=== PATIENT | female | born 1990 | race American Indian/Alaskan Native ===

== ENCOUNTER 2018-03-12 11:31 | Inpatient (IN) | payer OTHER ==
--- NOTE | 2018-03-12 14:54 | Emergency Department Report ---
Blank Doc - Documentation Documentation: Patient presents to emergency department with a chief complaint of chest pain that worse with inspiration along with the cough. The patient was diagnosed on 12/07/2017 with multifocal airspace infiltrates via CAT scan. Patient has CAT scan results with her and I did review them. Patient states she was too busy to be treated for the pneumonia and had to work and states since that time her symptoms have become worse. Imaging and labs will be obtained and the patient will be transferred to the main side of the emergency department.
--- NOTE | 2018-03-12 15:05 | Emergency Department Report ---
ED General Adult HPI - General Chief complaint: Chest Pain Stated complaint: CHEST PAIN/DIZZY SWEATS Time Seen by Provider: 03/12/18 14:40 Source: patient Mode of arrival: Ambulatory Limitations: No Limitations - History of Present Illness Initial comments: Patient presents to the emergency department with the complaint of chest pain with inspiration and shortness of breath on exertion. Patient states she was diagnosed with bilateral pneumonia on 12/07/2017 and did not seek treatment. Patient states she was too busy to follow up with the CT results that showed bilateral pneumonia. Patient has the CT report with her which I did review. -: Gradual Location: chest Radiation: non-radiation Severity scale (0 -10): 6 Quality: dull Consistency: constant Improves with: none Worsens with: none Associated Symptoms: denies other symptoms Treatments Prior to Arrival: none - Related Data Allergies Allergy/AdvReac Type Severity Reaction Status Date / Time No Known Allergies Allergy Verified 03/12/18 11:44 ED Review of Systems ROS: Stated complaint: CHEST PAIN/DIZZY SWEATS Other details as noted in HPI Constitutional: denies: chills, fever Eyes: denies: eye pain, eye discharge, vision change ENT: denies: ear pain, throat pain Respiratory: cough, shortness of breath, SOB with exertion. denies: wheezing Cardiovascular: chest pain. denies: palpitations Endocrine: no symptoms reported Gastrointestinal: denies: abdominal pain, nausea, diarrhea Genitourinary: denies: urgency, dysuria, discharge Musculoskeletal: denies: back pain, joint swelling, arthralgia Skin: denies: rash, lesions Neurological: denies: headache, weakness, paresthesias Psychiatric: denies: anxiety, depression Hematological/Lymphatic: denies: easy bleeding, easy bruising ED Past Medical Hx - Past Medical History Previous Medical History?: Yes Hx Asthma: Yes Additional medical history: pneumonia - Surgical History Past Surgical History?: No - Social History Smoking Status: Former Smoker Substance Use Type: Cocaine, Marijuana, Methamphetamines ED Physical Exam - General Limitations: No Limitations General appearance: alert, in no apparent distress - Head Head exam: Present: atraumatic, normocephalic - Eye Eye exam: Present: normal appearance - ENT ENT exam: Present: mucous membranes moist - Neck Neck exam: Present: normal inspection - Respiratory Respiratory exam: Present: normal lung sounds bilaterally, other (diminished breath sounds throughout). Absent: respiratory distress, wheezes, rales - Cardiovascular Cardiovascular Exam: Present: regular rate, normal rhythm. Absent: systolic murmur, diastolic murmur, rubs, gallop - GI/Abdominal GI/Abdominal exam: Present: soft, normal bowel sounds. Absent: distended, tenderness - Extremities Exam Extremities exam: Present: normal inspection - Back Exam Back exam: Present: normal inspection - Neurological Exam Neurological exam: Present: alert, oriented X3, CN II-XII intact. Absent: motor sensory deficit - Psychiatric Psychiatric exam: Present: normal affect, normal mood - Skin Skin exam: Present: warm, dry, intact, normal color. Absent: rash ED Course Vital Signs 03/12/18 11:44 Temperature 97.8 F Pulse Rate 103 H Respiratory 18 Rate Blood Pressure 137/98 O2 Sat by Pulse 98 Oximetry ED Medical Decision Making - Lab Data Result diagrams: 03/12/18 14:58 03/12/18 14:58 - Medical Decision Making Discussed results with the patient At [address] IV antibodies were initiated along with blood cultures and lactic acid Critical care attestation.: If time is entered above; I have spent that time in minutes in the direct care of this critically ill patient, excluding procedure time. ED Disposition Clinical Impression: Bilateral pneumonia Disposition: 09 OP ADMIT IP TO THIS HOSP Is pt being admited?: Yes Does the pt Need Aspirin: No Condition: Stable Referrals: PRIMARY CARE, [Primary Care Provider] - 3-5 Days Time of Disposition: 19:43
[2018-03-12] MEDS ORDERED: ZOFRAN IV ONE (15:06)
[2018-03-12] MEDS ORDERED: MORPHINE IV ONE (15:06)
[2018-03-12 15:08] LABS: Basophils % (Auto) 0.8 % (0.0-1.8); Eosinophils # (Auto) 0.2 K/mm3 (0.0-0.4); Eosinophils % (Auto) 2.6 % (0.0-4.3); Hematocrit 44.1 % (30.3-42.9); Hemoglobin 15.1 gm/dl (10.1-14.3); Lymphocytes # (Auto) 1.3 K/mm3 (1.2-5.4); Lymphocytes % (Auto) 21.1 % (13.4-35.0); Mean Corpuscular HGB Conc 34 % (30-34); Mean Corpuscular Hemoglobin 31 pg (28-32); Mean Corpuscular Volume 91 fl (79-97); Monocytes # (Auto) 0.6 K/mm3 (0.0-0.8); Monocytes % (Auto) 9.3 % (0.0-7.3); Platelet Count 445 K/mm3 (140-440); Red Blood Count 4.83 M/mm3 (3.65-5.03); Red Cell Distribution Width 13.3 % (13.2-15.2)
[2018-03-12 15:23] LABS: Partial Thromboplastin Time 29.9 Sec. (24.2-36.6)
[2018-03-12 15:26] LABS: Alanine Aminotransferase 11 units/L (7-56); Albumin 3.8 g/dL (3.9-5); BUN/Creatinine Ratio 18; Blood Urea Nitrogen 11 mg/dL (7-17); Calcium 9.4 mg/dL (8.4-10.2); Hemolysis Index 65
[2018-03-12] MEDS ORDERED: NACL 0.9% 1000 ML 1,000 ML ONE (15:35)
[2018-03-12 15:45] LABS: Bilirubin,Urine NEG (Negative); Blood,Urine NEG (Negative); Color,Urine Yellow (Yellow); HCG Qualitative,Urine Negative (Negative); Mucus,Urine 3+ /HPF; Protein,Urine <15 mg/dL mg/dL (Negative); Urobilinogen,Urine < 2.0 mg/dL (<2.0)
[2018-03-12] MEDS ORDERED: NACL 0.9% 1000 ML 1,000 ML IV ONE ×3 (15:47→19:41)
--- NOTE | 2018-03-12 16:47 | XRay Report ---
FINAL REPORT PROCEDURE: XR CHEST 1V AP TECHNIQUE: Chest radiograph anteroposterior view. CPT 77858 HISTORY: chest pain COMPARISON: No prior studies are available for comparison. FINDINGS: Heart size and pulmonary vasculature appear normal. There is focal dense consolidation left perihilar region extending laterally in small patchy alveolar densities in the right midlung field suggesting multifocal pneumonia. Lungs otherwise are clear. No effusions are seen. No acute bony abnormalities are identified IMPRESSION: Parenchymal density seen in the right and left hemithorax as described suspicious for multifocal pneumonia. Follow-up exam recommended to ensure resolution. No other abnormalities are identified..
--- NOTE | 2018-03-12 19:26 | Cat Scan Report ---
FINAL REPORT PROCEDURE: CT ANGIO CHEST TECHNIQUE: Computerized tomographic angiography of the chest was performed during the IV injection of iodinated nonionic contrast including image processing. The image data was postprocessed using 2-dimensional multiplanar reformatted (MPR) and 3-dimensional (MIP and/or volume rendered) techniques. HISTORY: chest pain COMPARISON: No prior studies are available for comparison. FINDINGS: Pulmonary outflow tract, right and left main pulmonary arteries and their proximal branches: Clear, no filling defects are seen to suggest pulmonary embolus. Pericardium: No evidence of pericardial effusion. Thoracic aorta: No evidence of aneurysmal dilatation or dissection. Coronary arteries: Are partially calcified indicating atherosclerotic disease. Mediastinum and hilar regions: Nonspecific subcentimeter lymph nodes are visualized. No pathologically enlarged lymph nodes or masses are identified. There is a nonspecific 6.8 millimeter low-density nodule in the right lobe of the thyroid gland. Lung Paige: There are multiple areas of parenchymal consolidation with air bronchograms. These extend into the left lower lobe, right lower lobe, medial aspect right middle lobe and right upper lobe. Greatest consolidation with air bronchograms visualized in the left upper lobe medially extending towards the left hilum. No effusions are identified. There are multiple small tree-in-bud type densities scattered in the lung paige bilaterally suggesting bronchiolitis. Upper abdomen: No acute or focal abnormality is seen. Other: No acute bony abnormalities are identified. IMPRESSION: No evidence of pulmonary embolus. Multiple areas of consolidation and air bronchograms visualized as well as scattered tree-in-bud type densities. The appearance suggest multifocal pneumonia and bronchiolitis. No effusions are seen. Small nonspecific low-density nodule right lobe of the thyroid gland. Consider follow-up nonemergent thyroid ultrasound.
[2018-03-12] MEDS ORDERED: ZOFRAN IV PRN (21:44)
[2018-03-12] MEDS ORDERED: ZOSYN/NS 3.375GM/50ML 3.375 GM/50 ML BAG IV SCH (22:00)
[2018-03-12] MEDS: ZOSYN/NS 4.5GM/100ML 4.5 GM/100 ML VIAL IV SCH (23:00)
[2018-03-12] MEDS: HEPARIN SUB-Q SCH (23:00)
[2018-03-12] MEDS ORDERED: HEPARIN ONE (23:04)
[2018-03-12] MEDS ORDERED: NACL 0.9% 1000 ML 2,000 ML ONE (23:04)
[2018-03-12] MEDS ORDERED: ZOSYN/NS 4.5GM/100ML 4.5 GM/100 ML VIAL IV ONE (23:04)
[2018-03-13] MEDS: ROBITUSSIN PO PRN ×3 (01:27→21:35)
[2018-03-13] MEDS: TYLENOL PO PRN ×4 (01:28→21:31)
--- NOTE | 2018-03-13 03:25 | History and Physical Report ---
CHIEF COMPLAINT: Chest pain. OTHER COMPLAINT: Includes diaphoresis and dizziness. HISTORY OF PRESENTING ILLNESS: The patient is a 27-year-old female who says she has been having pleuritic chest pain that all caused with inspiration and also the patient complained of shortness of breath on exertion. She was diagnosed with bilateral pneumonia in December of this year, but did not get any treatment. Said she was too busy to follow up with CT report that shows bilateral pneumonia. There is no history of fever, but there is history of cough. The patient has CT report, which was evaluated in the Emergency Room. PAST MEDICAL HISTORY: Pertinent for asthma and pneumonia. PAST SURGICAL HISTORY: Unremarkable. FAMILY HISTORY: Noncontributory. SOCIAL HISTORY: The patient is a former cigarette smoker and uses illicit drugs notably cocaine, marijuana, and methamphetamine, but does not drink alcohol. MEDICATIONS: The patient is not on any medication. ALLERGIES: THERE ARE NO KNOWN DRUG ALLERGIES. REVIEW OF SYSTEMS: CONSTITUTIONAL: There is no fever, but there is chills and there is diaphoresis. HEENT: There is no headache or sore throat. CARDIOVASCULAR: Pleuritic chest pain noted. No orthopnea. RESPIRATORY: Shortness of breath is present. Cough present. GASTROINTESTINAL SYSTEM: There is no nausea, no vomiting, no abdominal pain, diarrhea, or constipation. NEUROLOGIC: Dizziness present. No altered mental status. MUSCULOSKELETAL: There is no joint pain or swelling. DERMATOLOGICAL SYSTEM: There is no skin rash or itching. GENITOURINARY: There is no dysuria, hematuria, or flank pain. Rest of system review is normal. PHYSICAL EXAMINATION: GENERAL: At the time of exam, the patient was found to be alert, oriented x 3 and not in acute distress. VITAL SIGNS: Shows temperature of 97.8 degrees Fahrenheit, pulse of 103, respirations 18, blood pressure 137/98, O2 sat of 98% on room air. HEENT: Showed pupils to be equal, round, reactive to light and accommodation. Extraocular muscles are intact. NECK: Supple with no JVD or carotid bruit. CARDIOVASCULAR: Showed normal first and second heart sounds with no gallops or murmurs. RESPIRATORY SYSTEM: Show good air entry on both sides of the lungs with bilateral scattered crackles. GASTROINTESTINAL SYSTEM: Show abdomen to be full, soft, nontender with no organomegaly or rigidity. NEUROLOGICAL: Shows no focal deficit. MUSCULOSKELETAL SYSTEM: Show no joint swelling or tenderness. DERMATOLOGICAL SYSTEM: Show no skin rash. GENITOURINARY: Showing no costovertebral angle tenderness. PERTINENT LABORATORY DATA AND IMAGING STUDIES: The patient has CT angiogram of the chest done that shows bilateral multiple areas of consolidation, with air bronchogram and they say that this appearance suggest multifocal pneumonia and bronchiolitis. Also the patient has a chest x-ray done that shows parenchymal density seen in the right and left hemithorax as described suspicious for multifocal pneumonia. The patient's lab results shows CBC with normal white count, slightly elevated hemoglobin of 15.1 and elevated hematocrit of 44.1, with normal MCV. CBC differential shows elevated monocyte count of 9.3. The patient's chemistry shows slight decrease in sodium of 134 with rest of chemistry been unremarkable. The patient's urinalysis was unremarkable. DIAGNOSES: 1. Bilateral pneumonia. 2. Right thyroid lobe nodule. PLAN: 1. The patient will be admitted to medical floor. 2. The patient will be on Tylenol 650 mg by mouth every 4 hours for fever and headache and will be on guaifenesin and Robitussin. The dose of 200 mg by mouth every 4 hours. 3. The patient will be on IV Zosyn 3.375 grams q.8 hours. 4. The patient will be on Zofran 4 mg every 4 hours IV as needed for nausea and vomiting and DVT prophylaxis will be through heparin 5000 units subcutaneously q.12 hours. 5. The patient will be on oxygen by nasal cannula 2 liters per minute. 6. DVT prophylaxis will be through heparin 5000 units of subcutaneously q.12 hours and sequential compressive device. The patient's thyroid gland needs to be check with an ultrasound to rule out thyroid nodule and workup of the thyroid nodule is present as seen dictated in the CT angiogram report. The patient's diet to be 2 g sodium diet. JOB# [id number] OCN/NTS MTDD
[2018-03-13] MEDS: ZOSYN/NS 4.5GM/100ML 4.5 GM/100 ML VIAL IV SCH ×3 (07:02→21:35)
[2018-03-13] MEDS: HEPARIN SUB-Q SCH ×2 (10:00→21:49)
[2018-03-13] MEDS ORDERED: ZOSYN/NS 4.5GM/100ML 4.5 GM/100 ML VIAL IV ONE (19:35)
[2018-03-13] MEDS ORDERED: PERCOCET 5/325 PO PRN (21:47)
[2018-03-14 01:17] LABS: Creatine Kinase MB < 1.0 ng/mL (0.0-4.0)
[2018-03-14] MEDS: ZOSYN/NS 4.5GM/100ML 4.5 GM/100 ML VIAL IV SCH ×2 (06:38→13:38)
[2018-03-14 08:12] LABS: Creatine Kinase MB < 1.0 ng/mL (0.0-4.0)
[2018-03-14] MEDS: HEPARIN SUB-Q SCH (10:34)
[2018-03-14 12:34] VITALS: BP 127/90
[2018-03-14] MEDS: ROBITUSSIN PO PRN (13:48)
[2018-03-14 14:26] LABS: Creatine Kinase MB < 1.0 ng/mL (0.0-4.0)
--- NOTE | 2018-03-14 16:37 | Discharge Summary ---
Providers - Providers Date of Admission: 03/12/18 21:42 Attending physician: PELON DURAN MD Primary care physician: MARIANA GABRIEL MD Hospitalization Condition: Stable Exam - Constitutional Vitals: Temp Pulse Resp BP Pulse Ox 98.0 F 71 14 127/90 98 03/14/18 12:08 03/14/18 12:08 03/14/18 12:08 03/14/18 12:08 03/14/18 12:08 Plan Follow up with: PRIMARY MD NERY [Primary Care Provider] - 3-5 Days Prescriptions: Levofloxacin [Levaquin] 750 mg PO QDAY #6 tablet oxyCODONE /ACETAMINOPHEN [Percocet 5/325 mg] 1 tab PO Q4H PRN #7 tablet PRN Reason: Pain, Moderate (4-6)
== END 2018-03-14 18:40 | disposition home or self-care (01) | DRG 195 ==
LOC: ED 11:31 → 3A 21:42
PROVIDERS: ADMIT Internal Medicine; ATTEND Internal Medicine
DX: J18.9 Pneumonia, unspecified organism (principal); J45.909 Unspecified asthma, uncomplicated; F14.90 Cocaine use, unspecified, uncomplicated; F12.90 Cannabis use, unspecified, uncomplicated; E04.1 Nontoxic single thyroid nodule; F15.90 Other stimulant use, unspecified, uncomplicated; Z87.891 Personal history of nicotine dependence
CPT/HCPCS: 36415; 71045; 71275; 80053; 81001; 81025; 82140; 82550; 82553; 83880; 84436; 84439; 84443; 84484; 85025; 85610; 85730; 87040; 93005; 93010; 96361; 96374; 96375; J1644; J2270; J2405; J2543; J7030; Q9967

== ENCOUNTER 2019-05-16 14:02 | Emergency (ER) | payer OTHER ==
--- NOTE | 2019-05-16 14:18 | Event Note ---
ED Screening Note Date of service: 05/16/19 Time: 14:14 ED Screening Note: 29 y/o female comes in for left leg discoloration times 1 day. This initial assessment/diagnostic orders/clinical plan/treatment(s) is/are subject to change based on patients health status, clinical progression and re- assessment by fellow clinical providers in the ED. Further treatment and workup at subsequent clinical providers discretion. Patient/guardian urged not to elope from the ED as their condition may be serious if not clinically assessed and managed. Initial orders include:
--- NOTE | 2019-05-16 15:24 | XRay Report ---
CHEST 2 VIEWS INDICATION: shortness of breath. History of sarcoidosis per the patient. COMPARISON: 03/12/2018 FINDINGS: Support devices: None. Heart: Within normal limits. Lungs/pleura: No acute air space or interstitial disease. No pneumothorax. Linear scarring extending from the left hilum to the left upper lobe is identified which is slightly less pronounced than the previous exam. Additional findings: None. IMPRESSION: No acute findings. Linear scarring in the left upper lobe. Signer Name: Franco Lechuga Jr, MD Signed: 05/16/2019 3:19 PM Workstation Name: [id number]
--- NOTE | 2019-05-16 15:40 | Emergency Department Report ---
<CATALINO SPIVEY - Last Filed: 05/16/19 16:39> ED General Adult HPI - General Chief complaint: Extremity Problem,Nontraumatic Stated complaint: DISCOLORTION ON LEGS/KNOTS ON LEGS/SOB Time Seen by Provider: 05/16/19 15:01 Source: patient Mode of arrival: Ambulatory Limitations: No Limitations - History of Present Illness Initial comments: 29-year-old -[place] female with history of sarcoidosis presents today with complaints of swelling to right posterior knee and shortness of breath 2 weeks and bilateral skin redness, tenderness, and discoloration to lower extremities on waking today. Patient states she is not following with the administrative executive or primary care doctor. She denies any history of PE/DVT, OCPs. or current chest pain. She also denies fever or chills. He reports the swelling on her right leg is a 10 out of 10 in severity and the scan on her legs is a 4 out of 10 in severity. She denies trying any medications to help with the pain. Consistency: constant Associated Symptoms: cough, shortness of breath Treatments Prior to Arrival: none - Related Data Previous Rx's Medication Instructions Recorded Last Taken Type levoFLOXacin [Levaquin] 750 mg PO QDAY #6 tablet 03/14/18 Unknown Rx oxyCODONE /ACETAMINOPHEN [Percocet 1 tab PO Q4H PRN #7 tablet 03/14/18 Unknown Rx 5/325 mg] Acetaminophen/Codeine [Tylenol 1 tab PO Q6H PRN #10 tab 05/16/19 Unknown Rx /Codeine # 3 tab] predniSONE [Deltasone] 40 mg PO QDAY 7 Days #14 tab 05/16/19 Unknown Rx Allergies Allergy/AdvReac Type Severity Reaction Status Date / Time No Known Allergies Allergy Verified 03/12/18 11:44 ED Review of Systems Constitutional: denies: chills, fever, malaise Eyes: denies: vision change Respiratory: cough, shortness of breath, SOB with exertion Cardiovascular: denies: chest pain, palpitations Gastrointestinal: denies: abdominal pain, nausea, vomiting Genitourinary: denies: dysuria Musculoskeletal: denies: back pain, joint swelling, arthralgia Skin: as per HPI, change in color Neurological: denies: headache, weakness ED Past Medical Hx - Past Medical History Previous Medical History?: Yes Hx Asthma: Yes Hx HIV: No Additional medical history: Sarcoidosis - Surgical History Past Surgical History?: No - Social History Smoking Status: Never Smoker Substance Use Type: Alcohol, Marijuana - Medications Home Medications: Home Medications Medication Instructions Recorded Confirmed Last Taken Type levoFLOXacin [Levaquin] 750 mg PO QDAY #6 tablet 03/14/18 Unknown Rx oxyCODONE /ACETAMINOPHEN [Percocet 1 tab PO Q4H PRN #7 tablet 03/14/18 Unknown Rx 5/325 mg] Acetaminophen/Codeine [Tylenol 1 tab PO Q6H PRN #10 tab 05/16/19 Unknown Rx /Codeine # 3 tab] predniSONE [Deltasone] 40 mg PO QDAY 7 Days #14 tab 05/16/19 Unknown Rx ED Physical Exam - General Limitations: No Limitations General appearance: alert, in no apparent distress - Head Head exam: Present: atraumatic, normocephalic - Eye Eye exam: Present: normal appearance. Absent: scleral icterus - Neck Neck exam: Present: normal inspection - Respiratory Respiratory exam: Present: rales. Absent: respiratory distress, wheezes, rhonchi, chest wall tenderness - Cardiovascular Cardiovascular Exam: Present: regular rate, normal rhythm, normal heart sounds. Absent: systolic murmur, diastolic murmur, rubs, gallop - Rectal Rectal exam: Present: deferred - Extremities Exam Extremities exam: Present: other (mild swelling noted to postrior right medial knee with significant tenderness to palpation) - Back Exam Back exam: Present: full ROM - Neurological Exam Neurological exam: Present: alert, oriented X3 - Psychiatric Psychiatric exam: Present: normal affect, normal mood - Skin Skin exam: Present: dry, intact, erythema (bilaterally at knees with a dark discoloration ). Absent: normal color, cyanosis, diaphoretic, urticaria, vesicles, petechiae, pallor, ecchymosis ED Medical Decision Making - Lab Data Result diagrams: 05/16/19 15:58 05/16/19 15:58 - Radiology Data Radiology results: report reviewed CHEST 2 VIEWS INDICATION: shortness of breath. History of sarcoidosis per the patient. COMPARISON: 03/12/2018 FINDINGS: Support devices: None. Heart: Within normal limits. Lungs/pleura: No acute air space or interstitial disease. No pneumothorax. Linear scarring extending from the left hilum to the left upper lobe is identified which is slightly less pronounced than the previous exam. Additional findings: None. IMPRESSION: No acute findings. Linear scarring in the left upper lobe. DUPLEX DOPPLER LOWER EXTREMITY VEINS, RIGHT INDICATION: Right leg pain and swelling for 2 days, posterior pain and swelling. TECHNIQUE: Duplex doppler imaging was performed through the veins of the right lower extremity using venous compression and other maneuvers. COMPARISON: No relevant prior imaging study available. FINDINGS: Right Common femoral vein: Negative. Right Superficial femoral vein: Negative. Right Popliteal vein: Negative. Right Calf veins: Negative. Additional findings: None.. IMPRESSION: No sonographic evidence for DVT in the right lower extremity. ED Disposition Clinical Impression: Leg swelling, SOB (shortness of breath), Sarcoidosis Disposition: - TO HOME OR SELFCARE Condition: Stable Additional Instructions: please take medication as prescribed. do not drive or operate heavy machinery while taking pain medication. Follow up with a primary care doctor and administrative executive in the next 2-3 days. return to the emergency room for any new or worsening symptoms. Prescriptions: predniSONE [Deltasone] 40 mg PO QDAY 7 Days #14 tab Acetaminophen/Codeine [Tylenol /Codeine # 3 tab] 1 tab PO Q6H PRN #10 tab PRN Reason: pain Referrals: [facility] [Provider Group] - 2-3 Days [facility] [Outside] - 2-3 Days [facility] [Outside] - 2-3 Days LUZ HERMAN MD [Staff Physician] - 2-3 Days Print Language: HEBREW <PERRY DRAKE - Last Filed: 05/17/19 02:33> ED Review of Systems ROS: Stated complaint: DISCOLORTION ON LEGS/KNOTS ON LEGS/SOB Other details as noted in HPI ED Course Vital Signs 05/16/19 05/16/19 05/16/19 14:11 19:15 20:54 Temperature 97.9 F 98.2 F 98.3 F Pulse Rate 99 H 75 76 Respiratory 18 16 16 Rate Blood Pressure 142/102 Blood Pressure 141/96 118/68 [Left] O2 Sat by Pulse 98 99 100 Oximetry ED Medical Decision Making - Lab Data Result diagrams: 05/16/19 15:58 05/16/19 15:58 Lab Results 05/16/19 05/16/19 05/16/19 Range/Units 15:58 15:58 18:31 WBC 9.1 (4.5-11.0) K/mm3 RBC 4.88 (3.65-5.03) M/mm3 Hgb 15.1 H (10.1-14.3) gm/dl Hct 44.7 H (30.3-42.9) % MCV 92 (79-97) fl MCH 31 (28-32) pg MCHC 34 (30-34) % RDW 12.9 L (13.2-15.2) % Plt Count 416 (140-440) K/mm3 Lymph % (Auto) 27.8 (13.4-35.0) % [place] % (Auto) 6.6 (0.0-7.3) % Eos % (Auto) 2.3 (0.0-4.3) % Baso % (Auto) 0.7 (0.0-1.8) % Lymph # 2.5 (1.2-5.4) K/mm3 [place] # 0.6 (0.0-0.8) K/mm3 Eos # 0.2 (0.0-0.4) K/mm3 Baso # 0.1 (0.0-0.1) K/mm3 Seg Neutrophils % 62.6 (40.0-70.0) % Seg Neutrophils # 5.7 (1.8-7.7) K/mm3 Sodium 136 L (137-145) mmol/L Potassium 4.1 (3.6-5.0) mmol/L Chloride 100.6 (98-107) mmol/L Carbon Dioxide 23 (22-30) mmol/L Anion Gap 17 mmol/L BUN 9 (7-17) mg/dL Creatinine 0.6 L (0.7-1.2) mg/dL Estimated GFR > 60 ml/min BUN/Creatinine Ratio 15 % Glucose 133 H (65-100) mg/dL Calcium 9.2 (8.4-10.2) mg/dL Total Bilirubin 0.40 (0.1-1.2) mg/dL AST 18 (5-40) units/L ALT 13 (7-56) units/L Alkaline Phosphatase 99 (35-129) units/L Total Protein 8.1 (6.3-8.2) g/dL Albumin 4.4 (3.9-5) g/dL Albumin/Globulin Ratio 1.2 % Urine HCG, Qual Negative (Negative) - Radiology Data CTA CHEST WITH CONTRAST INDICATION / CLINICAL INFORMATION: shortness of breath, sarcoidosis. TECHNIQUE: Axial CT images were obtained through the chest after injection of 100 mL Omnipaque 350 IV contrast. 3 plane MIP and/or 3D reconstructions were produced. All CT scans at this location are performed using CT dose reduction for ALARA by means of automated exposure control. COMPARISON: CT dated 03/12/18 FINDINGS: PULMONARY ARTERIES: No pulmonary emboli. THORACIC AORTA: No significant abnormality. HEART: Upper normal size and stable. CORONARY ARTERIES: No significant calcification. MEDIASTINUM / ISA: No significant abnormality. PLEURA: No pleural effusion. No pneumothorax. LUNGS: Streaky bilateral parenchymal densities/scarring have improved slightly since the prior study. ADDITIONAL FINDINGS: None. UPPER ABDOMEN: No acute findings. SKELETAL STRUCTURES: No significant osseous abnormality. IMPRESSION: 1. No CT evidence for pulmonary embolism. 2. Interval improvement in streaky bilateral pulmonary parenchymal densities. Signer Name: Reji Crum MD Signed: 05/16/2019 8:09 PM Workstation Name: [id number] Transcribed By: DT Dictated By: Skyler Crum MD Electronically Authenticated By: Skyelr Crum MD Signed Date/Time: 05/16/192008 DD/ 99 TD/TT: - Medical Decision Making signed out by Tyler Spivey PA-C, pending CTA of the chest vitals are stable CTA of the chest: 1. No CT evidence for pulmonary embolism. 2. Interval improvement in streaky bilateral pulmonary parenchymal densities. US RLE negative for DVT CXR with no acute process on exam of the lower extremities: no edema of the BLE, mild hyperpigmentation of the bilateral knees, neurovascularly intact, FROM of the bilateral knees, no signs of cellulitis, no rash, no signs of septic joint, no signs of joint effusions pt given prescription for course of steroids and pain medication advised pt to please take medication as prescribed. do not drive or operate heavy machinery while taking pain medication. Follow up with a primary care doctor and administrative executive in the next 2-3 days. return to the emergency room for any new or worsening symptoms. pt given a list of community resources, discussed with pt the importance of this chronic condition being managed by a PCP or a specialist to prevent the complications associated with her condition. Critical care attestation.: If time is entered above; I have spent that time in minutes in the direct care of this critically ill patient, excluding procedure time. ED Disposition Is pt being admited?: No Does the pt Need Aspirin: No Time of Disposition: 20:28
--- NOTE | 2019-05-16 16:11 | Vascular Lab Report ---
DUPLEX DOPPLER LOWER EXTREMITY VEINS, RIGHT INDICATION: Right leg pain and swelling for 2 days, posterior pain and swelling. TECHNIQUE: Duplex doppler imaging was performed through the veins of the right lower extremity using venous compression and other maneuvers. COMPARISON: No relevant prior imaging study available. FINDINGS: Right Common femoral vein: Negative. Right Superficial femoral vein: Negative. Right Popliteal vein: Negative. Right Calf veins: Negative. Additional findings: None.. IMPRESSION: No sonographic evidence for DVT in the right lower extremity. Signer Name: Franco Lechuga Jr, MD Signed: 05/16/2019 4:07 PM Workstation Name: [id number]
[2019-05-16 16:15] LABS: Basophils # (Auto) 0.1 K/mm3 (0.0-0.1); Basophils % (Auto) 0.7 % (0.0-1.8); Eosinophils # (Auto) 0.2 K/mm3 (0.0-0.4); Eosinophils % (Auto) 2.3 % (0.0-4.3); Hematocrit 44.7 % (30.3-42.9); Hemoglobin 15.1 gm/dl (10.1-14.3); Lymphocytes # (Auto) 2.5 K/mm3 (1.2-5.4); Lymphocytes % (Auto) 27.8 % (13.4-35.0); Mean Corpuscular HGB Conc 34 % (30-34); Mean Corpuscular Volume 92 fl (79-97); Monocytes # (Auto) 0.6 K/mm3 (0.0-0.8); Monocytes % (Auto) 6.6 % (0.0-7.3); Platelet Count 416 K/mm3 (140-440); Red Blood Count 4.88 M/mm3 (3.65-5.03); Red Cell Distribution Width 12.9 % (13.2-15.2)
[2019-05-16 16:39] LABS: Alanine Aminotransferase 13 units/L (7-56); Albumin 4.4 g/dL (3.9-5); BUN/Creatinine Ratio 15; Blood Urea Nitrogen 9 mg/dL (7-17); Calcium 9.2 mg/dL (8.4-10.2); Hemolysis Index 6
[2019-05-16] MEDS ORDERED: dexAMETHasone 20 MG/5 ML VIAL IV ONE (18:11)
[2019-05-16 19:05] LABS: HCG Qualitative,Urine Negative (Negative)
--- NOTE | 2019-05-16 20:13 | Cat Scan Report ---
CTA CHEST WITH CONTRAST INDICATION / CLINICAL INFORMATION: shortness of breath, sarcoidosis. TECHNIQUE: Axial CT images were obtained through the chest after injection of 100 mL Omnipaque 350 IV contrast. 3 plane MIP and/or 3D reconstructions were produced. All CT scans at this location are performed usin g CT dose reduction for RAMONARA by means of automated exposure control. COMPARISON: CT dated 03/12/18 FINDINGS: PULMONARY ARTERIES: No pulmonary emboli. THORACIC AORTA: No significant abnormality. HEART: Upper normal size and stable. CORONARY ARTERIES: No significant calcification. MEDIASTINUM / ISA: No significant abnormality. PLEURA: No pleural effusion. No pneumothorax. LUNGS: Streaky bilateral parenchymal densities/scarring have improved slightly since the prior study. ADDITIONAL FINDINGS: None. UPPER ABDOMEN: No acute findings. SKELETAL STRUCTURES: No significant osseous abnormality. IMPRESSION: 1. No CT evidence for pulmonary embolism. 2. Interval improvement in streaky bilateral pulmonary parenchymal densities. Signer Name: Reji Crum MD Signed: 05/16/2019 8:09 PM Workstation Name: [id number]
[2019-05-16 20:54] VITALS: BP 118/68
== END 2019-05-16 20:55 | disposition home or self-care (01) ==
LOC: ED 14:02
DX: D86.9 Sarcoidosis, unspecified (principal); M79.89 Other specified soft tissue disorders; R06.02 Shortness of breath; J45.909 Unspecified asthma, uncomplicated
CPT/HCPCS: 36415; 71046; 71275; 80053; 81025; 85025; 93971; 96374; 99284; J1100; Q9967

== ENCOUNTER 2020-07-25 09:41 | Emergency (ER) | payer SELFPAY ==
[2020-07-25 09:53] VITALS: BP 145/104
--- NOTE | 2020-07-25 13:26 | Emergency Department Report ---
Upper Extremity - HPI Upper Extremity: Left Middle Finger (laceration ) Occurred When: 1 Day (yesterday around 9 pm) Mechanism: Other (Pt states she accidentally stuck her finger in the motor of the snow cone machine and the bald cut her finger) Symptoms: Yes Pain with Movement, Yes Numbness, Yes Laceration or Abrasion Other History: 30 year old female presented to ED c/o laceration to left 3rd finger. Onset 9pm last night while at work. She states she accidentally stuck her finger in the snow cone machine and the blade of the motor cut her finger. She states she lac to tip of her finger and to nail. She states she immediately wrapped it but continue working. She went to [place] when she got off work but wait was too long and therefore came here. She reports numbness to tip of finger but otherwise no other symptoms. <SILVERIO COBB - Last Filed: 07/25/20 14:23> <YARELI CRAWFORD - Last Filed: 07/25/20 14:28> - HPI Chief Complaint: Wound/Laceration Stated Complaint: LFT FINGER NAIL LAC/PAIN Time Seen by Provider: 07/25/20 12:20 ED Review of Systems ROS: Stated complaint: LFT FINGER NAIL LAC/PAIN Other details as noted in HPI Comment: All other systems reviewed and negative Constitutional: denies: chills, fever Respiratory: denies: cough, shortness of breath, wheezing Cardiovascular: denies: chest pain, palpitations Skin: other (laceration to finger ) Neurological: numbness Psychiatric: denies: anxiety, depression Hematological/Lymphatic: denies: easy bleeding, easy bruising <SILVERIO COBB - Last Filed: 07/25/20 14:23> ROS: Stated complaint: LFT FINGER NAIL LAC/PAIN Other details as noted in HPI <YARELI CRAWFORD - Last Filed: 07/25/20 14:28> ED Past Medical Hx - Past Medical History Previous Medical History?: Yes Hx Asthma: Yes Hx HIV: No Additional medical history: Sarcoidosis - Social History Smoking Status: Never Smoker Substance Use Type: Alcohol, Marijuana <SILVERIO COBB - Last Filed: 07/25/20 14:23> <YARELI CRAWFORD - Last Filed: 07/25/20 14:28> - Medications Home Medications: Home Medications Medication Instructions Recorded Confirmed Last Taken Type predniSONE [Deltasone] 40 mg PO QDAY 7 Days #14 tab 05/16/19 Unknown Rx Sulfamethoxazole/Trimethoprim 1 each PO BID #14 tablet 02/11/20 Unknown Rx [Bactrim DS TAB] Ibuprofen [Motrin] 800 mg PO Q6HR PRN #30 tablet 07/25/20 Unknown Rx Upper Extremity Exam - Exam General: Vital signs noted. No distress. Alert and acting appropriately. Head and Torso: No HEENT Abnormality, No Chest/Lungs Abnormality Hand: Yes Digit Tenderness (left 3rd finger tip) CMS Exam: Yes Broken Skin (there is a small very superficial lac about 1cm noted to very tip of finger. It did exten into nail tip and small piece is hanging off overall nail bed/remaining nail intact. Patient had very tight dressing to finger so the skin of distal finger is pale/wrinkled and there is decrease sensation to tip of finger and fat pad but cap refill nl. She has full ROM of finger. No deformity. ) <SILVERIO COBB - Last Filed: 07/25/20 14:23> - Exam General: Vital signs noted. No distress. Alert and acting appropriately. <YARELI CRAWFORD - Last Filed: 07/25/20 14:28> ED Course Vital Signs 07/25/20 09:53 Temperature 98.3 F Pulse Rate 82 Respiratory 16 Rate Blood Pressure 145/104 [Right] O2 Sat by Pulse 100 Oximetry <SILVERIO COBB - Last Filed: 07/25/20 14:23> Vital Signs 07/25/20 09:53 Temperature 98.3 F Pulse Rate 82 Respiratory 16 Rate Blood Pressure 145/104 [Right] O2 Sat by Pulse 100 Oximetry <YARELI CRAWFORD - Last Filed: 07/25/20 14:28> ED Medical Decision Making - Medical Decision Making Pt presented to ED w/complains of lac to left 3rd finger since last night around 9pm.Pt with a small, very superfiical lac to tip of left 3rd finger with partial avulsion of nail tip but otherwise nail bed and remaining nail intact. There is no indication for repair. Treatment plan and wound care discussed with patient. Patient stable at time of discharge. <SILVERIO COBB Last Filed: 07/25/20 14:23> Critical care attestation.: If time is entered above; I have spent that time in minutes in the direct care of this critically ill patient, excluding procedure time. <SILVERIO COBB - Last Filed: 07/25/20 14:23> Critical care attestation.: If time is entered above; I have spent that time in minutes in the direct care of this critically ill patient, excluding procedure time. <YARELI CRAWFORD - Last Filed: 07/25/20 14:28> ED Disposition Is pt being admited?: No Does the pt Need Aspirin: No Time of Disposition: 13:29 <SILVERIO COBB - Last Filed: 07/25/20 14:23> <YARELI CRAWFORD - Last Filed: 07/25/20 14:28> Clinical Impression: Finger laceration Disposition: DC- TO HOME OR SELFCARE Condition: Stable Instructions: Nonsutured Laceration Care Additional Instructions: Keep wound clean with soap and water. Dry well and after each cleaning apply small amt of neosporin. Do this daily until healed. Just use band aid but not tight on the finger. Take the motrin as prescribed. Follow up with PCP. Return to ED if symptoms worsens or changes. Prescriptions: Ibuprofen [Motrin] 800 mg PO Q6HR PRN #30 tablet PRN Reason: Pain , Severe (7-10) Referrals: PRIMARY CARE,MD [Primary Care Provider] - 3-5 Days Forms: Work/School Release Form(ED)
[2020-07-25] MEDS ORDERED: NEOMY 3.5 MG/BACIT 400 UNITS/POLY B 5000 UNITS/GM OINT PACKET TP ONE (13:31)
== END 2020-07-25 14:58 | disposition home or self-care (01) ==
LOC: ED 09:41
DX: S61.315A Laceration without foreign body of left ring finger with damage to nail, initial encounter (principal); J45.909 Unspecified asthma, uncomplicated; F12.90 Cannabis use, unspecified, uncomplicated; Z79.899 Other long term (current) drug therapy; X58.XXXA Exposure to other specified factors, initial encounter; Y93.89 Activity, other specified; Y92.89 Other specified places as the place of occurrence of the external cause; Y99.0 Civilian activity done for income or pay
CPT/HCPCS: 99282; A6250

== ENCOUNTER 2020-09-10 17:42 | Emergency (ER) | payer SELFPAY ==
[2020-09-10 17:50] VITALS: BP 163/101
[2020-09-10] MEDS ORDERED: RABIES VACCINE, HUMAN DIPLOID/PF 2.5 UNIT/ML VIAL IM ONE (18:05)
[2020-09-10] MEDS ORDERED: RABIES IMMUNE GLOBULIN P/F 300 UNIT/ML INJ 5 ML IM ONE (18:05)
--- NOTE | 2020-09-10 18:09 | Event Note ---
ED Screening Note Date of service: 09/10/20 Time: 18:03 ED Screening Note: 30-year-old -[place] female presents to the emergency room reporting that she had been bitten by a pit bull 20 minutes prior to arrival to her right arm and forearm. Patient reports that she was recently had a tetanus shot as she was here not too long ago. Patient is unaware of the status of the pitbull. Animal control has not been notified. This initial assessment/diagnostic orders/clinical plan/treatment(s) is/are subject to change based on patients health status, clinical progression and re- assessment by fellow clinical providers in the ED. Further treatment and workup at subsequent clinical providers discretion. Patient/guardian urged not to elope from the ED as their condition may be serious if not clinically assessed and managed. Initial orders include:
[2020-09-10] MEDS ORDERED: IBUPROFEN 600 MG TAB PO ONE (18:17)
--- NOTE | 2020-09-10 18:17 | Event Note ---
ED Screening Note Date of service: 09/10/20 Time: 18:10 ED Screening Note: 30-year-old -[place] female presents to the emergency room for right arm animal bite 20 minutes prior to arrival. Patient reports up-to-date on all vaccines for herself. Dog unknown. Last menstrual period was 08/27/2020. This initial assessment/diagnostic orders/clinical plan/treatment(s) is/are subject to change based on patients health status, clinical progression and re- assessment by fellow clinical providers in the ED. Further treatment and workup at subsequent clinical providers discretion. Patient/guardian urged not to elope from the ED as their condition may be serious if not clinically assessed and managed. Initial orders include:
--- NOTE | 2020-09-10 19:18 | XRay Report ---
HISTORY:Animal bite to the forearm COMPARISON: None. TECHNIQUE: AP lateral and obliques views were obtained FINDINGS: Bones: No fracture or dislocation. Joint spaces: Maintained. Soft tissues: No significant abnormality. Additional findings: None. IMPRESSION: 1. No significant abnormality. Signer Name: Carter Edmond MD Signed: 09/10/2020 7:14 PM Workstation Name: [id number]
--- NOTE | 2020-09-10 19:18 | XRay Report ---
CLINICAL DATA: Animal bite to the forearm TECHNICAL DATA: 2 views were obtained, AP, lateral FINDINGS: There is no acute fracture or dislocation. The visualized joint spaces are normal. IMPRESSION: No acute radiographic abnormality. Signer Name: Carter Edmond MD Signed: 09/10/2020 7:14 PM Workstation Name: [id number]
--- NOTE | 2020-09-10 19:49 | Emergency Department Report ---
ED Animal Bite HPI - General Chief Complaint: Animal Bite Stated Complaint: DOG BITE RT HAND Time Seen by Provider: 09/10/20 18:30 Source: patient Mode of arrival: Ambulatory Limitations: No Limitations - History of Present Illness Initial Comments: 30-year-old -[place] female presents to the emergency room reporting that she had been bitten by a pit bull 20 minutes prior to arrival to her right arm and forearm. Patient is complaining of pain to the right forearm where she was bitten. Patient states she was outside when people attacked her. Patient states she knows or not the dog but does not know the vaccination status of the dog. patient reports that she was recently had a tetanus shot as she was here not too long ago. Patient is unaware of the status of the pitbull. Animal control has not been notified. Complaint: animal bite - Related Data Previous Rx's Medication Instructions Recorded Last Taken Type predniSONE [Deltasone] 40 mg PO QDAY 7 Days #14 tab 05/16/19 Unknown Rx Sulfamethoxazole/Trimethoprim 1 each PO BID #14 tablet 02/11/20 Unknown Rx [Bactrim DS TAB] Amoxicillin/Potassium Clav 1 each PO BID #20 tablet 09/10/20 Unknown Rx [Augmentin 875-125 Tablet] Ibuprofen [Motrin 800 MG tab] 800 mg PO Q6HR PRN #30 tablet 09/10/20 Unknown Rx Allergies Allergy/AdvReac Type Severity Reaction Status Date / Time No Known Allergies Allergy Verified 03/12/18 11:44 ED Review of Systems ROS: Stated complaint: DOG BITE RT HAND Other details as noted in HPI Comment: All other systems reviewed and negative ED Past Medical Hx - Past Medical History Previous Medical History?: Yes Hx Asthma: Yes Hx HIV: No Additional medical history: Sarcoidosis - Social History Smoking Status: Never Smoker Substance Use Type: Alcohol, Marijuana - Medications Home Medications: Home Medications Medication Instructions Recorded Confirmed Last Taken Type predniSONE [Deltasone] 40 mg PO QDAY 7 Days #14 tab 05/16/19 Unknown Rx Sulfamethoxazole/Trimethoprim 1 each PO BID #14 tablet 02/11/20 Unknown Rx [Bactrim DS TAB] Amoxicillin/Potassium Clav 1 each PO BID #20 tablet 09/10/20 Unknown Rx [Augmentin 875-125 Tablet] Ibuprofen [Motrin 800 MG tab] 800 mg PO Q6HR PRN #30 tablet 09/10/20 Unknown Rx ED Physical Exam - General Limitations: No Limitations General appearance: alert, in no apparent distress - Head Head exam: Present: atraumatic, normocephalic - Eye Eye exam: Present: normal appearance - ENT ENT exam: Present: mucous membranes moist - Neck Neck exam: Present: normal inspection - Respiratory Respiratory exam: Present: normal lung sounds bilaterally. Absent: respiratory distress - Cardiovascular Cardiovascular Exam: Present: regular rate, normal rhythm. Absent: systolic murmur, diastolic murmur, rubs, gallop - GI/Abdominal GI/Abdominal exam: Present: soft, normal bowel sounds - Extremities Exam Extremities exam: Present: normal inspection, full ROM, tenderness (To palpation of the surrounding areas of the bite), normal capillary refill, other (Dog bite barry to the right forearm noted that 2 to 3 cm) - Back Exam Back exam: Present: normal inspection - Neurological Exam Neurological exam: Present: alert, oriented X3 - Psychiatric Psychiatric exam: Present: normal affect, normal mood - Skin Skin exam: Present: warm, dry, intact, normal color. Absent: rash ED Course Vital Signs 09/10/20 17:49 Temperature 98 F Pulse Rate 86 Respiratory 16 Rate Blood Pressure 163/101 [Right] O2 Sat by Pulse 96 Oximetry Critical care attestation.: If time is entered above; I have spent that time in minutes in the direct care of this critically ill patient, excluding procedure time. ED Disposition Clinical Impression: Dog bite, Abrasion of right arm Disposition: DC-01 TO HOME OR SELFCARE Is pt being admited?: No Does the pt Need Aspirin: No Condition: Stable Instructions: Animal Bite, Adult Additional Instructions: Make sure to follow up with the primary care physician as discussed. Take all your medications as you've been prescribed. If you have any worsening symptoms or develop new symptoms please return to ED immediately. Prescriptions: Amoxicillin/Potassium Clav [Augmentin 875-125 Tablet] 1 each PO BID #20 tablet Ibuprofen [Motrin 800 MG tab] 800 mg PO Q6HR PRN #30 tablet PRN Reason: Pain , Severe (7-10) Referrals: PRIMARY CARE,MD [Primary Care Provider] - 3-5 Days [facility] [Outside] - 3-5 Days [facility] [Outside] - 3-5 Days Forms: Accompanied Note, Work/School Release Form(ED) ED Medical Decision Making - Radiology Data Radiology results: report reviewed, image reviewed Fluoro Time In Minutes: HISTORY:Animal bite to the forearm COMPARISON: None. TECHNIQUE: AP lateral and obliques views were obtained FINDINGS: Bones: No fracture or dislocation. Joint spaces: Maintained. Soft tissues: No significant abnormality. Additional findings: None. IMPRESSION: 1. No significant abnormality. Signer Name: Carter Edmond MD Signed: 09/10/2020 7:14 PM Workstation Name: [id number] Transcribed By: GENA Dictated By: Carter Edmond MD Electronically Authenticated By: Carter Edmond MD Signed Date/Time: 09/10/201913 - Medical Decision Making 23-year-old female presents with dog bite to the right forearm ED course: Patient received RIG, rabies vaccine And Motrin for pain. Dog bite abrasion cleaned with saline flushes. Discussed with patient. Keep wound open and mildly covered while working outside discussed otherwise keep wound dry Discussed to use Neosporin ointment as needed. Discussed to return day 3, day 7 and 14 for the risks of the vaccination. Vital signs are stable she is in no acute distress She understands her instructions given.
[2020-09-10] MEDS ORDERED: NEOMY 3.5 MG/BACIT 400 UNITS/POLY B 5000 UNITS/GM OINT PACKET TP ONE (20:48)
== END 2020-09-10 21:10 | disposition home or self-care (01) ==
LOC: ED 17:42
DX: S40.811A Abrasion of right upper arm, initial encounter (principal); Z79.899 Other long term (current) drug therapy; W54.0XXA Bitten by dog, initial encounter; Y93.89 Activity, other specified; Y92.89 Other specified places as the place of occurrence of the external cause; Y99.8 Other external cause status
CPT/HCPCS: 73060; 73090; 90375; 90471; 90675; 96372; 99283; A6250